=== PATIENT | male | born 1975 | race Caucasian/White ===

== ENCOUNTER → 2016-08-19 | Outpatient (CLI) | payer OTHER ==
[~2016-08-19] MED LIST: IBUPROFEN800 MG PO; KEFLEX CAP 500500 MG PO; MINIPRESS5 MG PO; NEURONTIN 400400 MG PO; PERCOCET 10-321 EACH PO; VITAMIN C 500500 MG PO
== END ==
LOC: KOH-I 11:08
DX: M79.671 Pain in right foot (principal)
CPT/HCPCS: 73700

== ENCOUNTER → 2020-03-28 | Outpatient (CLI) | payer OTHER ==
[~2020-03-28] MED LIST changes: +IBUPROFEN200 MG PO; +NEURONTIN800 MG PO; +NORCO 7.5-3251 EACH PO; +VENTOLIN HFA 66.7 GM INH
== END ==
LOC: KOH-I 09:46
DX: M79.671 Pain in right foot (principal)
CPT/HCPCS: 73630

== ENCOUNTER → 2020-06-26 | Outpatient (CLI) | payer OTHER | LOC: KOH-I 09:37 | DX: M79.671 Pain in right foot (principal); Z47.89 Encounter for other orthopedic aftercare | CPT/HCPCS: 73630 ==